=== PATIENT | female | born 1970 | race Caucasian/White ===

== ENCOUNTER 2017-10-10 04:08 | Emergency (ER) | payer SELFPAY ==
[2017-10-10 05:22] VITALS: BP 115/78; PULSE 82; RESP 16; TEMP 97.8
[2017-10-10] MEDS ORDERED: HYDROcodone/APAP 5-325MG 1 EACH TAB PO STA (05:25)
[2017-10-10] MEDS ORDERED: DIPH,PERTUS(ACELL)TETVAC-LF 0.5 ML VIAL IM ONE (05:25)
[2017-10-10] MEDS ORDERED: IBUPROFEN 400 MG TAB PO STA (05:25)
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
--- NOTE | 2017-10-10 05:49 | XR ---
EXAMINATION TYPE: XR nasal bone DATE OF EXAM: 10/10/2017 COMPARISON: NONE HISTORY: Redness and swelling. Pain. TECHNIQUE: 3 views FINDINGS: Nasal bone appears intact. Maxillary spine is intact. Orbital margins are intact. There is normal aeration of the maxillary sinuses. IMPRESSION: Normal nasal bone exam.
== END 2017-10-10 06:49 | disposition home or self-care (01) ==
LOC: EC 04:08
DX: S50.12XA Contusion of left forearm, initial encounter (principal); S00.33XA Contusion of nose, initial encounter; R45.6 Violent behavior; F17.200 Nicotine dependence, unspecified, uncomplicated; Z23 Encounter for immunization; Y04.0XXA Assault by unarmed brawl or fight, initial encounter; Y92.009 Unspecified place in unspecified non-institutional (private) residence as the place of occurrence of the external cause
CPT/HCPCS: 70160; 90471; 90715; 99284